=== PATIENT | female | born 1950 | race American Indian/Alaskan Native ===

== ENCOUNTER 2017-06-12 01:06 | Emergency (ER) | payer MEDICARE ==
[2017-06-12 01:55] LABS: Basophils # (Auto) 0.1 K/mm3 (0.0-0.1); Basophils % (Auto) 0.9 % (0.0-1.8); Eosinophils % (Auto) 0.1 % (0.0-4.3); Hematocrit 34.2 % (30.3-42.9); Hemoglobin 11.8 gm/dl (10.1-14.3); Lymphocytes # (Auto) 1.3 K/mm3 (1.2-5.4); Lymphocytes % (Auto) 13.4 % (13.4-35.0); Mean Corpuscular HGB Conc 35 % (30-34); Mean Corpuscular Hemoglobin 31 pg (28-32); Mean Corpuscular Volume 91 fl (79-97); Monocytes # (Auto) 0.6 K/mm3 (0.0-0.8); Monocytes % (Auto) 6.4 % (0.0-7.3); Platelet Count 312 K/mm3 (140-440); Red Blood Count 3.77 M/mm3 (3.65-5.03); Red Cell Distribution Width 14.9 % (13.2-15.2)
[2017-06-12] MEDS ORDERED: ZOFRAN ODT PO ONE (01:56)
--- NOTE | 2017-06-12 01:58 | Emergency Department Report ---
ED N/V/D HPI - General Chief complaint: Nausea/Vomiting/Diarrhea Stated complaint: ABDOMINAL PAIN Time Seen by Provider: 06/12/17 01:36 Source: EMS Mode of arrival: Stretcher Limitations: Altered Mental Status - History of Present Illness Initial comments: 56 year old female with a history of dementia and previous brain bleed presents to Hospital complains of 2 episodes of vomiting this evening. Symptoms started after eating chicken. Patient states to triage her stomach hurts but denies pain during my evaluation. She denies hematochezia, dysuria, diarrhea, fever, or previous abdominal surgery. - Related Data Previous Rx's Medication Instructions Recorded Last Taken Type Ondansetron [Zofran Odt] 4 mg PO Q8HR PRN #20 tab.rapdis 06/12/17 Unknown Rx Allergies Allergy/AdvReac Type Severity Reaction Status Date / Time No Known Allergies Allergy Verified 06/12/17 03:06 ED Review of Systems ROS: Stated complaint: ABDOMINAL PAIN Other details as noted in HPI Comment: All other systems reviewed and negative ED Past Medical Hx - Past Medical History Hx Dementia: Yes Additional medical history: brain bleed - Surgical History Past Surgical History?: No - Social History Smoking Status: Never Smoker Substance Use Type: None - Medications Home Medications: Home Medications Medication Instructions Recorded Confirmed Last Taken Type Ondansetron [Zofran Odt] 4 mg PO Q8HR PRN #20 tab.rapdis 06/12/17 Unknown Rx ED Physical Exam - General Limitations: Altered Mental Status - Other Other exam information: General: No limitations, patient is alert in no acute distress Head exam: Atraumatic, normocephalic Eyes exam: Normal appearance, pupils equal reactive to light, extraocular movements intact ENT: Moist mucous membrane, normal oropharynx Neck exam: Normal inspection, full range of motion, no meningismus nontender Respiratory exam: Clear to auscultation bilateral, no wheezes, rales, crackles Cardiovascular: Normal rate and rhythm, normal heart sounds Abdomen: Soft, nondistended, and nontender, with normal bowel sounds, no rebound, or guarding Extremity: Full range of motion normal inspection no deformity Back: Normal Inspection, full range of motion, no tenderness Neurologic: Alert, cranial nerves intact, no motor or sensory deficit Psychiatric: normal affect, normal mood Skin: Warm, dry, intact ED Course Vital Signs 04/29/18 01:23 Temperature 97.5 F L Pulse Rate 79 Respiratory 16 Rate Blood Pressure 152/75 O2 Sat by Pulse 100 Oximetry ED Medical Decision Making - Lab Data Result diagrams: 06/12/17 01:40 06/12/17 01:40 Lab Results 06/12/17 06/12/17 06/12/17 Range/Units 01:40 01:40 01:40 WBC 9.5 (4.5-11.0) K/mm3 RBC 3.77 (3.65-5.03) M/mm3 Hgb 11.8 (10.1-14.3) gm/dl Hct 34.2 (30.3-42.9) % MCV 91 (79-97) fl MCH 31 (28-32) pg MCHC 35 H (30-34) % RDW 14.9 (13.2-15.2) % Plt Count 312 (140-440) K/mm3 Lymph % (Auto) 13.4 (13.4-35.0) % Branch % (Auto) 6.4 (0.0-7.3) % Eos % (Auto) 0.1 (0.0-4.3) % Baso % (Auto) 0.9 (0.0-1.8) % Lymph # 1.3 (1.2-5.4) K/mm3 Branch # 0.6 (0.0-0.8) K/mm3 Eos # 0.0 (0.0-0.4) K/mm3 Baso # 0.1 (0.0-0.1) K/mm3 Seg Neutrophils % 79.2 H (40.0-70.0) % Seg Neutrophils # 7.5 (1.8-7.7) K/mm3 Sodium 142 (137-145) mmol/L Potassium 3.4 L (3.6-5.0) mmol/L Chloride 101.2 (98-107) mmol/L Carbon Dioxide 27 (22-30) mmol/L Anion Gap 17 mmol/L BUN 7 (7-17) mg/dL Creatinine 0.5 L (0.7-1.2) mg/dL Estimated GFR > 60 ml/min BUN/Creatinine Ratio 14 % Glucose 107 H (65-100) mg/dL Calcium 9.3 (8.4-10.2) mg/dL Total Bilirubin 0.40 (0.1-1.2) mg/dL AST 12 (5-40) units/L ALT 7 (7-56) units/L Alkaline Phosphatase 66 (35-129) units/L Total Protein 6.4 (6.3-8.2) g/dL Albumin 3.3 L (3.9-5) g/dL Albumin/Globulin Ratio 1.1 % Lipase 30 (13-60) units/L Urine Color (Yellow) Urine Turbidity (Clear) Urine pH (5.0-7.0) Ur Specific [place] (1.003-1.030) Urine Protein (Negative) mg/dL Urine Glucose (UA) (Negative) mg/dL Urine Ketones (Negative) mg/dL Urine Blood (Negative) Urine Nitrite (Negative) Urine Bilirubin (Negative) Urine Urobilinogen (<2.0) mg/dL Ur Leukocyte Esterase (Negative) Urine WBC (Auto) (0.0-6.0) /HPF Urine RBC (Auto) (0.0-6.0) /HPF U Epithel Cells (Auto) (0-13.0) /HPF Urine Mucus /HPF 04// Range/Units 04:03 WBC (4.5-11.0) K/mm3 RBC (3.65-5.03) M/mm3 Hgb (10.1-14.3) gm/dl Hct (30.3-42.9) % MCV (79-97) fl MCH (28-32) pg MCHC (30-34) % RDW (13.2-15.2) % Plt Count (140-440) K/mm3 Lymph % (Auto) (13.4-35.0) % Branch % (Auto) (0.0-7.3) % Eos % (Auto) (0.0-4.3) % Baso % (Auto) (0.0-1.8) % Lymph # (1.2-5.4) K/mm3 Branch # (0.0-0.8) K/mm3 Eos # (0.0-0.4) K/mm3 Baso # (0.0-0.1) K/mm3 Seg Neutrophils % (40.0-70.0) % Seg Neutrophils # (1.8-7.7) K/mm3 Sodium (137-145) mmol/L Potassium (3.6-5.0) mmol/L Chloride (98-107) mmol/L Carbon Dioxide (22-30) mmol/L Anion Gap mmol/L BUN (7-17) mg/dL Creatinine (0.7-1.2) mg/dL Estimated GFR ml/min BUN/Creatinine Ratio % Glucose (65-100) mg/dL Calcium (8.4-10.2) mg/dL Total Bilirubin (0.1-1.2) mg/dL AST (5-40) units/L ALT (7-56) units/L Alkaline Phosphatase (35-129) units/L Total Protein (6.3-8.2) g/dL Albumin (3.9-5) g/dL Albumin/Globulin Ratio % Lipase (13-60) units/L Urine Color Yellow (Yellow) Urine Turbidity Clear (Clear) Urine pH 7.0 (5.0-7.0) Ur Specific [place] 1.014 (1.003-1.030) Urine Protein <15 mg/dl (Negative) mg/dL Urine Glucose (UA) Neg (Negative) mg/dL Urine Ketones Neg (Negative) mg/dL Urine Blood Neg (Negative) Urine Nitrite Neg (Negative) Urine Bilirubin Neg (Negative) Urine Urobilinogen 2.0 (<2.0) mg/dL Ur Leukocyte Esterase Sm (Negative) Urine WBC (Auto) 6.0 (0.0-6.0) /HPF Urine RBC (Auto) 2.0 (0.0-6.0) /HPF U Epithel Cells (Auto) < 1.0 (0-13.0) /HPF Urine Mucus Few /HPF - Medical Decision Making By mouth Zofran given No pain reported Tolerating by mouth intake without further vomiting Asymptomatic in the ED Received by mouth potassium for mild hypokalemia Labs and urine unremarkable. Will be discharged - Differential Diagnosis gastritis, pancreatitis, food poisoning Critical Care Time: No Critical care attestation.: If time is entered above; I have spent that time in minutes in the direct care of this critically ill patient, excluding procedure time. ED Disposition Clinical Impression: Vomiting, Hypokalemia, Dementia Disposition: DC-01 TO HOME OR SELFCARE Is pt being admited?: No Does the pt Need Aspirin: No Condition: Stable Instructions: Acute Nausea and Vomiting (ED) Additional Instructions: Take the medication as prescribed. Follow-up with your doctor. Return if symptoms worsen as indicated by your discharge instructions Prescriptions: Ondansetron [Zofran Odt] 4 mg PO Q8HR PRN #20 tab.rapdis PRN Reason: Nausea And Vomiting Referrals: your, pmd [Other] - 2-3 Days Time of Disposition: 05:22
[2017-06-12 02:23] LABS: Alanine Aminotransferase 7 units/L (7-56); Albumin 3.3 g/dL (3.9-5); BUN/Creatinine Ratio 14; Blood Urea Nitrogen 7 mg/dL (7-17); Calcium 9.3 mg/dL (8.4-10.2); Hemolysis Index 27
[2017-06-12] MEDS ORDERED: POTASSIUM CHLORIDE PO ONE (03:00)
[2017-06-12 04:25] LABS: Bilirubin,Urine NEG (Negative); Blood,Urine NEG (Negative); Color,Urine Yellow (Yellow); Mucus,Urine FEW /HPF; Protein,Urine <15 mg/dL mg/dL (Negative)
[2017-06-12 07:09] VITALS: BP 154/74
== END 2017-06-12 07:15 | disposition home or self-care (01) ==
LOC: ED 01:06
DX: E87.6 Hypokalemia (principal); R11.10 Vomiting, unspecified; F03.90 Unspecified dementia, unspecified severity, without behavioral disturbance, psychotic disturbance, mood disturbance, and anxiety
CPT/HCPCS: 36415; 80053; 81001; 83690; 85025; 99284; Q0162

== ENCOUNTER 2017-06-21 12:13 | Emergency (ER) | payer MEDICARE ==
[2017-06-21] MEDS ORDERED: MORPHINE IV ONE (13:24)
[2017-06-21] MEDS ORDERED: BENADRYL IV ONE ×2 (13:24→14:44)
[2017-06-21] MEDS ORDERED: ZOFRAN IV ONE (13:24)
[2017-06-21] MEDS ORDERED: NACL 0.9% 1000 ML 1,000 ML IV ONE ×6 (13:26→20:11)
--- NOTE | 2017-06-21 13:32 | Emergency Department Report ---
ED Abdominal Pain HPI - General Chief Complaint: Abdominal Pain Stated Complaint: ABDOMINAL PAIN Time Seen by Provider: 06/21/17 13:10 Source: EMS, RN notes reviewed, old records reviewed Mode of arrival: Stretcher Limitations: Altered Mental Status - History of Present Illness Initial Comments: 56-year-old female with a past medical history of vascular dementia, alcohol abuse disorder, seizure disorder, hyposmolality and hyponatremia, encephalopathy , and previous traumatic subdural presents to the hospital from the detention with ulceration mental status and abdominal pain. Patient has a history of dementia but is more altered than baseline. She is currently agitated, restless, and unable to provide history of present illness. Previous medical records were reviewed and patient was seen by me in the ER June 12 for 2 episodes of vomiting. At that time patient had a normal white count, creatinine 0.5, normal UA, and was tolerating by mouth and had a nontender abdominal exam. Patient was also more alert at this time although confused due to baseline dementia. As per detention records patient had lab work on the that showed a white count of 18.7, creatinine of 5.6, BUN of 51, sodium 129, chloride is 72, CO2 of 28 and normal LFTs. Patient also had a single view abdominal x-ray which showed bowel gas pattern that was nonobstructive. Patient unable to provide any history of present illness. On June 20 patient was started on Flagyl as well as Rocephin for presumed diverticulitis. Patient is also started on Zofran for nausea and vomiting. - Related Data Previous Rx's Medication Instructions Recorded Last Taken Type Ondansetron [Zofran Odt] 4 mg PO Q8HR PRN #20 tab.rapdis 06/12/17 Unknown Rx Allergies Allergy/AdvReac Type Severity Reaction Status Date / Time No Known Allergies Allergy Verified 06/12/17 03:06 ED Review of Systems ROS: Stated complaint: ABDOMINAL PAIN Other details as noted in HPI Comment: Unobtainable due to pts medical conditions ED Past Medical Hx - Past Medical History Previous Medical History?: Yes Hx Seizures: Yes Hx Dementia: Yes (vascular dementia) Additional medical history: Traumatic subdural. History of alcohol abuse. Hyponatremia and hyposmoality - Social History Smoking Status: Unknown if ever smoked - Medications Home Medications: Home Medications Medication Instructions Recorded Confirmed Last Taken Type Ondansetron [Zofran Odt] 4 mg PO Q8HR PRN #20 tab.rapdis 06/12/17 Unknown Rx ED Physical Exam - General Limitations: Altered Mental Status - Other Other exam information: General: Patient is alert, restless, confused Head exam: Atraumatic, normocephalic Eyes exam: Normal appearance, pupils equal reactive to light ENT: Moist mucous membrane, normal oropharynx Neck exam: Normal inspection, full range of motion Respiratory exam: Clear to auscultation bilateral, no wheezes, rales, crackles Cardiovascular: Regular rate and rhythm Abdomen: Soft, generalized tenderness, no abd scars, no rebound or guarding Extremity: Full range of motion normal inspection no deformity Back: Normal Inspection, full range of motion, no tenderness Neurologic: Confused, unable to have a conversation, no facial droop, and cooperative has what sounds, 5/5 upper and lower extremity strength with sensation grossly intact Skin: Warm, dry, intact ED Course Vital Signs 06/21/17 06/21/17 06/21/17 13:39 13:45 14:01 Temperature Pulse Rate 78 83 Pulse Rate [ Anterior Bilateral Throughout] Respiratory 16 24 Rate Respiratory Rate [Anterior Bilateral Throughout] Blood Pressure 133/109 133/109 133/109 Blood Pressure [Right] O2 Sat by Pulse Oximetry 06/21/17 06/21/17 06/21/17 14:13 14:15 14:31 Temperature 98.3 F Pulse Rate 78 80 82 Pulse Rate [ Anterior Bilateral Throughout] Respiratory 24 22 21 Rate Respiratory Rate [Anterior Bilateral Throughout] Blood Pressure 133/109 133/109 Blood Pressure 133/109 [Right] O2 Sat by Pulse 100 Oximetry 06/21/17 06/21/17 06/21/17 14:45 14:48 15:00 Temperature Pulse Rate 75 69 Pulse Rate [ Anterior Bilateral Throughout] Respiratory 10 L 18 11 L Rate Respiratory Rate [Anterior Bilateral Throughout] Blood Pressure 133/109 111/59 Blood Pressure [Right] O2 Sat by Pulse Oximetry 06/21/17 06/21/17 06/21/17 15:14 15:15 15:18 Temperature Pulse Rate 67 Pulse Rate [ 69 Anterior Bilateral Throughout] Respiratory 13 24 Rate Respiratory 18 Rate [Anterior Bilateral Throughout] Blood Pressure 111/59 Blood Pressure [Right] O2 Sat by Pulse Oximetry 06/21/17 06/21/17 06/21/17 15:31 15:45 16:00 Temperature Pulse Rate 80 75 70 Pulse Rate [ Anterior Bilateral Throughout] Respiratory 16 13 12 Rate Respiratory Rate [Anterior Bilateral Throughout] Blood Pressure 120/58 120/58 106/61 Blood Pressure [Right] O2 Sat by Pulse 100 Oximetry 06/21/17 06/21/17 06/21/17 16:15 16:28 16:30 Temperature Pulse Rate 69 70 Pulse Rate [ 69 Anterior Bilateral Throughout] Respiratory 13 14 Rate Respiratory 20 Rate [Anterior Bilateral Throughout] Blood Pressure 109/58 117/61 Blood Pressure [Right] O2 Sat by Pulse 100 100 Oximetry 06/21/17 06/21/17 06/21/17 16:46 17:01 17:31 Temperature 94.9 F L Pulse Rate 68 70 70 Pulse Rate [ Anterior Bilateral Throughout] Respiratory 11 L 11 L 12 Rate Respiratory Rate [Anterior Bilateral Throughout] Blood Pressure 119/55 111/53 Blood Pressure 119/57 [Right] O2 Sat by Pulse 100 Oximetry 06/21/17 06/21/17 06/21/17 18:07 18:15 18:30 Temperature Pulse Rate 71 69 71 Pulse Rate [ Anterior Bilateral Throughout] Respiratory 11 L 11 L 11 L Rate Respiratory Rate [Anterior Bilateral Throughout] Blood Pressure 97/54 98/53 Blood Pressure [Right] O2 Sat by Pulse 100 100 100 Oximetry 06/21/17 06/21/17 06/21/17 18:45 18:52 19:00 Temperature 95.1 F L Pulse Rate 85 82 82 Pulse Rate [ Anterior Bilateral Throughout] Respiratory 20 20 20 Rate Respiratory Rate [Anterior Bilateral Throughout] Blood Pressure 91/51 86/47 Blood Pressure 83/51 [Right] O2 Sat by Pulse 100 Oximetry 06/21/17 06/21/17 06/21/17 19:10 19:15 19:30 Temperature Pulse Rate 84 79 79 Pulse Rate [ Anterior Bilateral Throughout] Respiratory 20 20 Rate Respiratory Rate [Anterior Bilateral Throughout] Blood Pressure 86/47 107/61 86/47 Blood Pressure [Right] O2 Sat by Pulse 100 100 100 Oximetry 06/21/17 06/21/17 19:45 20:00 Temperature Pulse Rate 81 85 Pulse Rate [ Anterior Bilateral Throughout] Respiratory 20 15 Rate Respiratory Rate [Anterior Bilateral Throughout] Blood Pressure 92/56 82/61 Blood Pressure [Right] O2 Sat by Pulse 100 Oximetry - Reevaluation(s) Reevaluation #1: 06/21/17 20:22 see medical decision making for patient's course of treatment and plan I contacted family member Marii Molina patient's sister at [phone] and informed her of patient's critical condition, diagnosis and treatment in the ED , need for transfer, and destination for transfer at [facility] - Consultations Consultation #1: 06/21/17 15:35 case d/w Dr Sherman, nephro, will consult Consultation #2: 06/21/170 case d/w Dr Rolon Neurosurgeon at [place], accepted pt pending surg acceptance Dr Lucho valente surgeon accepted for ER transfer - Central Line Placement Left IJ Consent Obtained: emergent situation Time Out Performed: Yes Patient Placed on Monitor/Pulse Ox: Yes MD Prep: mask, gown, gloves Central Line Prep: Chlorhexidine scrub Local Anesthesia Used: Lidocaine 1% Amount of Anesthesia Used (mls): 5 Ultrasound Used for Placement: Yes Central Line Lumen Inserted: triple Bloods Obtained for Lab: Yes Central Line Position: good blood return, sutured in place with nyl Dressing Applied: Tegaderm Post Procedure X-Ray: tip of catheter in good p Patient Tolerated Procedure: well Complications: none, arterial puncture/cannula (puncture, no cannulation ) - Intubation Time Out Performed: Yes Sedative: Etomidate Mg Given: 20 Paralytic: Vecuronium Mg Given: 90 Laryngoscope: Violet Size: 3 ET Tube Size: 7.5 Tube Secured Depth (cm): 20 Tube Secured Location: lips Tube Placement Confirmation: visualized tube passing t, equal breath sounds bilat, no breath sounds over epi, confirmation by capnometr Patient Tolerated Procedure: well Intubation Complications: none ED Medical Decision Making - Lab Data Result diagrams: 06/21/17 13:41 06/21/17 18:22 Lab Results 06/21/17 06/21/17 06/21/17 Range/Units 12:20 13:41 13:41 WBC 16.1 H (4.5-11.0) K/mm3 RBC 4.55 (3.65-5.03) M/mm3 Hgb 13.8 (10.1-14.3) gm/dl Hct 39.2 (30.3-42.9) % MCV 86 (79-97) fl MCH 30 (28-32) pg MCHC 35 H (30-34) % RDW 14.9 (13.2-15.2) % Plt Count 343 (140-440) K/mm3 Lymph % (Auto) 4.8 L (13.4-35.0) % [place] % (Auto) 5.0 (0.0-7.3) % Eos % (Auto) 0.0 (0.0-4.3) % Baso % (Auto) 0.3 (0.0-1.8) % Lymph # 0.8 L (1.2-5.4) K/mm3 Stephenson # 0.8 (0.0-0.8) K/mm3 Eos # 0.0 (0.0-0.4) K/mm3 Baso # 0.0 (0.0-0.1) K/mm3 Seg Neutrophils % 89.9 H (40.0-70.0) % Seg Neutrophils # 14.4 H (1.8-7.7) K/mm3 PT (12.2-14.9) Sec. INR (0.87-1.13) APTT (24.2-36.6) Sec. POC ABG pH (7.35-7.45) POC ABG pCO2 (35-45) POC ABG pO2 (80-105) POC ABG HCO3 POC ABG Total CO2 POC ABG O2 Sat POC ABG Base Excess VBG pH (7.320-7.420) FiO2 % Sodium 121 L (137-145) mmol/L Potassium 6.1 H* (3.6-5.0) mmol/L Chloride 65.9 L (98-107) mmol/L Carbon Dioxide 20 L (22-30) mmol/L Anion Gap 41 mmol/L BUN 132 H (7-17) mg/dL Creatinine 8.8 H (0.7-1.2) mg/dL Estimated GFR 5 ml/min BUN/Creatinine Ratio 15 % Glucose 77 (65-100) mg/dL POC Glucose 72 (70-105) Lactic Acid (0.7-2.0) mmol/L Calcium 8.2 L (8.4-10.2) mg/dL Magnesium (1.7-2.3) mg/dL Total Bilirubin 0.70 (0.1-1.2) mg/dL AST 18 (5-40) units/L ALT 7 (7-56) units/L Alkaline Phosphatase 125 (35-129) units/L Total Protein 7.9 (6.3-8.2) g/dL Albumin 3.5 L (3.9-5) g/dL Albumin/Globulin Ratio 0.8 % Lipase 57 (13-60) units/L TSH (0.270-4.200) mlU/mL Urine Color (Yellow) Urine Turbidity (Clear) Urine pH (5.0-7.0) Ur Specific [place] (1.003-1.030) Urine Protein (Negative) mg/dL Urine Glucose (UA) (Negative) mg/dL Urine Ketones (Negative) mg/dL Urine Blood (Negative) Urine Nitrite (Negative) Urine Bilirubin (Negative) Urine Urobilinogen (<2.0) mg/dL Ur Leukocyte Esterase (Negative) Urine WBC (Auto) (0.0-6.0) /HPF Urine RBC (Auto) (0.0-6.0) /HPF U Epithel Cells (Auto) (0-13.0) /HPF Urine Bacteria (Auto) (Negative) /HPF Ur Transition Epith Cell /HPF Urine Mucus /HPF Urine Opiates Screen Urine Methadone Screen Ur Barbiturates Screen Ur Phencyclidine Scrn Ur Amphetamines Screen U Benzodiazepines Scrn Urine Cocaine Screen U Marijuana (THC) Screen Drugs of Abuse Note Plasma/Serum Alcohol (0-0.07) % Blood Type Antibody Screen 06/21/17 06/21/17 06/21/17 Range/Units 13:41 13:41 13:41 WBC (4.5-11.0) K/mm3 RBC (3.65-5.03) M/mm3 Hgb (10.1-14.3) gm/dl Hct (30.3-42.9) % MCV (79-97) fl MCH (28-32) pg MCHC (30-34) % RDW (13.2-15.2) % Plt Count (140-440) K/mm3 Lymph % (Auto) (13.4-35.0) % Stephenson % (Auto) (0.0-7.3) % Eos % (Auto) (0.0-4.3) % Baso % (Auto) (0.0-1.8) % Lymph # (1.2-5.4) K/mm3 Stephenson # (0.0-0.8) K/mm3 Eos # (0.0-0.4) K/mm3 Baso # (0.0-0.1) K/mm3 Seg Neutrophils % (40.0-70.0) % Seg Neutrophils # (1.8-7.7) K/mm3 PT (12.2-14.9) Sec. INR (0.87-1.13) APTT (24.2-36.6) Sec. POC ABG pH (7.35-7.45) POC ABG pCO2 (35-45) POC ABG pO2 (80-105) POC ABG HCO3 POC ABG Total CO2 POC ABG O2 Sat POC ABG Base Excess VBG pH (7.320-7.420) FiO2 % Sodium (137-145) mmol/L Potassium (3.6-5.0) mmol/L Chloride (98-107) mmol/L Carbon Dioxide (22-30) mmol/L Anion Gap mmol/L BUN (7-17) mg/dL Creatinine (0.7-1.2) mg/dL Estimated GFR ml/min BUN/Creatinine Ratio % Glucose (65-100) mg/dL POC Glucose (70-105) Lactic Acid 2.10 H* (0.7-2.0) mmol/L Calcium (8.4-10.2) mg/dL Magnesium (1.7-2.3) mg/dL Total Bilirubin (0.1-1.2) mg/dL AST (5-40) units/L ALT (7-56) units/L Alkaline Phosphatase (35-129) units/L Total Protein (6.3-8.2) g/dL Albumin (3.9-5) g/dL Albumin/Globulin Ratio % Lipase (13-60) units/L TSH 1.150 (0.270-4.200) mlU/mL Urine Color (Yellow) Urine Turbidity (Clear) Urine pH (5.0-7.0) Ur Specific [place] (1.003-1.030) Urine Protein (Negative) mg/dL Urine Glucose (UA) (Negative) mg/dL Urine Ketones (Negative) mg/dL Urine Blood (Negative) Urine Nitrite (Negative) Urine Bilirubin (Negative) Urine Urobilinogen (<2.0) mg/dL Ur Leukocyte Esterase (Negative) Urine WBC (Auto) (0.0-6.0) /HPF Urine RBC (Auto) (0.0-6.0) /HPF U Epithel Cells (Auto) (0-13.0) /HPF Urine Bacteria (Auto) (Negative) /HPF Ur Transition Epith Cell /HPF Urine Mucus /HPF Urine Opiates Screen Urine Methadone Screen Ur Barbiturates Screen Ur Phencyclidine Scrn Ur Amphetamines Screen U Benzodiazepines Scrn Urine Cocaine Screen U Marijuana (THC) Screen Drugs of Abuse Note Plasma/Serum Alcohol < 0.01 (0-0.07) % Blood Type Antibody Screen 06/21/17 06/21/17 06/21/17 Range/Units 13:41 13:41 13:54 WBC (4.5-11.0) K/mm3 RBC (3.65-5.03) M/mm3 Hgb (10.1-14.3) gm/dl Hct (30.3-42.9) % MCV (79-97) fl MCH (28-32) pg MCHC (30-34) % RDW (13.2-15.2) % Plt Count (140-440) K/mm3 Lymph % (Auto) (13.4-35.0) % Stephenson % (Auto) (0.0-7.3) % Eos % (Auto) (0.0-4.3) % Baso % (Auto) (0.0-1.8) % Lymph # (1.2-5.4) K/mm3 Stephenson # (0.0-0.8) K/mm3 Eos # (0.0-0.4) K/mm3 Baso # (0.0-0.1) K/mm3 Seg Neutrophils % (40.0-70.0) % Seg Neutrophils # (1.8-7.7) K/mm3 PT (12.2-14.9) Sec. INR (0.87-1.13) APTT (24.2-36.6) Sec. POC ABG pH (7.35-7.45) POC ABG pCO2 (35-45) POC ABG pO2 (80-105) POC ABG HCO3 POC ABG Total CO2 POC ABG O2 Sat POC ABG Base Excess VBG pH 7.562 H (7.320-7.420) FiO2 % Sodium (137-145) mmol/L Potassium (3.6-5.0) mmol/L Chloride (98-107) mmol/L Carbon Dioxide (22-30) mmol/L Anion Gap mmol/L BUN (7-17) mg/dL Creatinine (0.7-1.2) mg/dL Estimated GFR ml/min BUN/Creatinine Ratio % Glucose (65-100) mg/dL POC Glucose 95 (70-105) Lactic Acid (0.7-2.0) mmol/L Calcium (8.4-10.2) mg/dL Magnesium 4.00 H (1.7-2.3) mg/dL Total Bilirubin (0.1-1.2) mg/dL AST (5-40) units/L ALT (7-56) units/L Alkaline Phosphatase (35-129) units/L Total Protein (6.3-8.2) g/dL Albumin (3.9-5) g/dL Albumin/Globulin Ratio % Lipase (13-60) units/L TSH (0.270-4.200) mlU/mL Urine Color (Yellow) Urine Turbidity (Clear) Urine pH (5.0-7.0) Ur Specific [place] (1.003-1.030) Urine Protein (Negative) mg/dL Urine Glucose (UA) (Negative) mg/dL Urine Ketones (Negative) mg/dL Urine Blood (Negative) Urine Nitrite (Negative) Urine Bilirubin (Negative) Urine Urobilinogen (<2.0) mg/dL Ur Leukocyte Esterase (Negative) Urine WBC (Auto) (0.0-6.0) /HPF Urine RBC (Auto) (0.0-6.0) /HPF U Epithel Cells (Auto) (0-13.0) /HPF Urine Bacteria (Auto) (Negative) /HPF Ur Transition Epith Cell /HPF Urine Mucus /HPF Urine Opiates Screen Urine Methadone Screen Ur Barbiturates Screen Ur Phencyclidine Scrn Ur Amphetamines Screen U Benzodiazepines Scrn Urine Cocaine Screen U Marijuana (THC) Screen Drugs of Abuse Note Plasma/Serum Alcohol (0-0.07) % Blood Type Antibody Screen 06/21/17 06/21/17 06/21/17 Range/Units 14:10 14:10 14:44 WBC (4.5-11.0) K/mm3 RBC (3.65-5.03) M/mm3 Hgb (10.1-14.3) gm/dl Hct (30.3-42.9) % MCV (79-97) fl MCH (28-32) pg MCHC (30-34) % RDW (13.2-15.2) % Plt Count (140-440) K/mm3 Lymph % (Auto) (13.4-35.0) % Stephenson % (Auto) (0.0-7.3) % Eos % (Auto) (0.0-4.3) % Baso % (Auto) (0.0-1.8) % Lymph # (1.2-5.4) K/mm3 Stephenson # (0.0-0.8) K/mm3 Eos # (0.0-0.4) K/mm3 Baso # (0.0-0.1) K/mm3 Seg Neutrophils % (40.0-70.0) % Seg Neutrophils # (1.8-7.7) K/mm3 PT (12.2-14.9) Sec. INR (0.87-1.13) APTT (24.2-36.6) Sec. POC ABG pH (7.35-7.45) POC ABG pCO2 (35-45) POC ABG pO2 (80-105) POC ABG HCO3 POC ABG Total CO2 POC ABG O2 Sat POC ABG Base Excess VBG pH (7.320-7.420) FiO2 % Sodium (137-145) mmol/L Potassium (3.6-5.0) mmol/L Chloride (98-107) mmol/L Carbon Dioxide (22-30) mmol/L Anion Gap mmol/L BUN (7-17) mg/dL Creatinine (0.7-1.2) mg/dL Estimated GFR ml/min BUN/Creatinine Ratio % Glucose (65-100) mg/dL POC Glucose (70-105) Lactic Acid 2.60 H* (0.7-2.0) mmol/L Calcium (8.4-10.2) mg/dL Magnesium (1.7-2.3) mg/dL Total Bilirubin (0.1-1.2) mg/dL AST (5-40) units/L ALT (7-56) units/L Alkaline Phosphatase (35-129) units/L Total Protein (6.3-8.2) g/dL Albumin (3.9-5) g/dL Albumin/Globulin Ratio % Lipase (13-60) units/L TSH (0.270-4.200) mlU/mL Urine Color [place] (Yellow) Urine Turbidity Cloudy (Clear) Urine pH 5.0 (5.0-7.0) Ur Specific [place] 1.017 (1.003-1.030) Urine Protein 30 mg/dl (Negative) mg/dL Urine Glucose (UA) Neg (Negative) mg/dL Urine Ketones Neg (Negative) mg/dL Urine Blood Sm (Negative) Urine Nitrite Neg (Negative) Urine Bilirubin Neg (Negative) Urine Urobilinogen < 2.0 (<2.0) mg/dL Ur Leukocyte Esterase Lg (Negative) Urine WBC (Auto) 115.0 H (0.0-6.0) /HPF Urine RBC (Auto) 11.0 (0.0-6.0) /HPF U Epithel Cells (Auto) 3.0 (0-13.0) /HPF Urine Bacteria (Auto) 1+ (Negative) /HPF Ur Transition Epith Cell 1 /HPF Urine Mucus Few /HPF Urine Opiates Screen Presumptive negative Urine Methadone Screen Presumptive negative Ur Barbiturates Screen Presumptive negative Ur Phencyclidine Scrn Presumptive negative Ur Amphetamines Screen Presumptive negative U Benzodiazepines Scrn Presumptive negative Urine Cocaine Screen Presumptive negative U Marijuana (THC) Screen Presumptive negative Drugs of Abuse Note Disclamer Plasma/Serum Alcohol (0-0.07) % Blood Type Antibody Screen 06/21/17 06/21/17 06/21/17 Range/Units 15:01 15:53 17:45 WBC (4.5-11.0) K/mm3 RBC (3.65-5.03) M/mm3 Hgb (10.1-14.3) gm/dl Hct (30.3-42.9) % MCV (79-97) fl MCH (28-32) pg MCHC (30-34) % RDW (13.2-15.2) % Plt Count (140-440) K/mm3 Lymph % (Auto) (13.4-35.0) % Stephenson % (Auto) (0.0-7.3) % Eos % (Auto) (0.0-4.3) % Baso % (Auto) (0.0-1.8) % Lymph # (1.2-5.4) K/mm3 Stephenson # (0.0-0.8) K/mm3 Eos # (0.0-0.4) K/mm3 Baso # (0.0-0.1) K/mm3 Seg Neutrophils % (40.0-70.0) % Seg Neutrophils # (1.8-7.7) K/mm3 PT (12.2-14.9) Sec. INR (0.87-1.13) APTT (24.2-36.6) Sec. POC ABG pH 7.528 H (7.35-7.45) POC ABG pCO2 33.4 L (35-45) POC ABG pO2 98 (80-105) POC ABG HCO3 27.8 POC ABG Total CO2 29 POC ABG O2 Sat 98 POC ABG Base Excess 5 VBG pH (7.320-7.420) FiO2 28 % Sodium (137-145) mmol/L Potassium (3.6-5.0) mmol/L Chloride (98-107) mmol/L Carbon Dioxide (22-30) mmol/L Anion Gap mmol/L BUN (7-17) mg/dL Creatinine (0.7-1.2) mg/dL Estimated GFR ml/min BUN/Creatinine Ratio % Glucose (65-100) mg/dL POC Glucose (70-105) Lactic Acid 1.40 (0.7-2.0) mmol/L Calcium (8.4-10.2) mg/dL Magnesium (1.7-2.3) mg/dL Total Bilirubin (0.1-1.2) mg/dL AST (5-40) units/L ALT (7-56) units/L Alkaline Phosphatase (35-129) units/L Total Protein (6.3-8.2) g/dL Albumin (3.9-5) g/dL Albumin/Globulin Ratio % Lipase (13-60) units/L TSH (0.270-4.200) mlU/mL Urine Color (Yellow) Urine Turbidity (Clear) Urine pH (5.0-7.0) Ur Specific [place] (1.003-1.030) Urine Protein (Negative) mg/dL Urine Glucose (UA) (Negative) mg/dL Urine Ketones (Negative) mg/dL Urine Blood (Negative) Urine Nitrite (Negative) Urine Bilirubin (Negative) Urine Urobilinogen (<2.0) mg/dL Ur Leukocyte Esterase (Negative) Urine WBC (Auto) (0.0-6.0) /HPF Urine RBC (Auto) (0.0-6.0) /HPF U Epithel Cells (Auto) (0-13.0) /HPF Urine Bacteria (Auto) (Negative) /HPF Ur Transition Epith Cell /HPF Urine Mucus /HPF Urine Opiates Screen Urine Methadone Screen Ur Barbiturates Screen Ur Phencyclidine Scrn Ur Amphetamines Screen U Benzodiazepines Scrn Urine Cocaine Screen U Marijuana (THC) Screen Drugs of Abuse Note Plasma/Serum Alcohol (0-0.07) % Blood Type O POSITIVE Antibody Screen Negative 06/21/17 06/21/17 Range/Units 18:22 18:30 WBC (4.5-11.0) K/mm3 RBC (3.65-5.03) M/mm3 Hgb (10.1-14.3) gm/dl Hct (30.3-42.9) % MCV (79-97) fl MCH (28-32) pg MCHC (30-34) % RDW (13.2-15.2) % Plt Count (140-440) K/mm3 Lymph % (Auto) (13.4-35.0) % [place] % (Auto) (0.0-7.3) % Eos % (Auto) (0.0-4.3) % Baso % (Auto) (0.0-1.8) % Lymph # (1.2-5.4) K/mm3 [place] # (0.0-0.8) K/mm3 Eos # (0.0-0.4) K/mm3 Baso # (0.0-0.1) K/mm3 Seg Neutrophils % (40.0-70.0) % Seg Neutrophils # (1.8-7.7) K/mm3 PT 12.8 (12.2-14.9) Sec. INR 0.92 (0.87-1.13) APTT 29.2 (24.2-36.6) Sec. POC ABG pH (7.35-7.45) POC ABG pCO2 (35-45) POC ABG pO2 (80-105) POC ABG HCO3 POC ABG Total CO2 POC ABG O2 Sat POC ABG Base Excess VBG pH (7.320-7.420) FiO2 % Sodium (137-145) mmol/L Potassium 4.5 D (3.6-5.0) mmol/L Chloride (98-107) mmol/L Carbon Dioxide (22-30) mmol/L Anion Gap mmol/L BUN (7-17) mg/dL Creatinine (0.7-1.2) mg/dL Estimated GFR ml/min BUN/Creatinine Ratio % Glucose (65-100) mg/dL POC Glucose (70-105) Lactic Acid (0.7-2.0) mmol/L Calcium (8.4-10.2) mg/dL Magnesium (1.7-2.3) mg/dL Total Bilirubin (0.1-1.2) mg/dL AST (5-40) units/L ALT (7-56) units/L Alkaline Phosphatase (35-129) units/L Total Protein (6.3-8.2) g/dL Albumin (3.9-5) g/dL Albumin/Globulin Ratio % Lipase (13-60) units/L TSH (0.270-4.200) mlU/mL Urine Color (Yellow) Urine Turbidity (Clear) Urine pH (5.0-7.0) Ur Specific [place] (1.003-1.030) Urine Protein (Negative) mg/dL Urine Glucose (UA) (Negative) mg/dL Urine Ketones (Negative) mg/dL Urine Blood (Negative) Urine Nitrite (Negative) Urine Bilirubin (Negative) Urine Urobilinogen (<2.0) mg/dL Ur Leukocyte Esterase (Negative) Urine WBC (Auto) (0.0-6.0) /HPF Urine RBC (Auto) (0.0-6.0) /HPF U Epithel Cells (Auto) (0-13.0) /HPF Urine Bacteria (Auto) (Negative) /HPF Ur Transition Epith Cell /HPF Urine Mucus /HPF Urine Opiates Screen Urine Methadone Screen Ur Barbiturates Screen Ur Phencyclidine Scrn Ur Amphetamines Screen U Benzodiazepines Scrn Urine Cocaine Screen U Marijuana (THC) Screen Drugs of Abuse Note Plasma/Serum Alcohol (0-0.07) % Blood Type Antibody Screen - EKG Data -: EKG Interpreted by Me EKG shows normal: sinus rhythm, axis (2), QRS complexes (111), ST-T waves (no stemi/t waves, no peak t waves, pvc's) Rate: normal (80) - EKG Data When compared to previous EKG there are: previous EKG unavailable - Radiology Data Radiology results: report reviewed, image reviewed (read by me: repeat cxr after central line, ngt, intubation show appropriate postions of tubes. no pneumonothorax, possible lll infiltrate) Chest x-ray IMPRESSION: Cardiomegaly. No acute pulmonary findings. ct head FINDINGS: There is a moderate size extra-axial fluid collection seen extending along the lateral aspect of the left frontal, left parietal lobe and minimally along the superior aspect of the left temporal lobe. This is predominantly low density suggesting a chronic subdural hematoma however there also small areas of intermediate to increased density scattered within the fluid collection suggesting subacute hemorrhage superimposed within a chronic subdural hematoma. Overall this extends anterior to posterior approximately 15.5 centimeters and measuring up to approximately 12 millimeters in depth. There is moderate mass effect effacing the adjacent sulci. There is mild midline shift left to right approximately 5.5 millimeters. Ventricles and sulcal pattern otherwise are mildly prominent as are the fissures consistent with mild atrophy. No parenchymal hemorrhage or masses are identified. There is no evidence of skull fracture. Two old yahaira holes are visualized in the left parietal bone. Visualized portions of the paranasal sinuses are clear. Mastoid air cells are clear. IMPRESSION: Moderate-sized chronic left subdural hematoma with superimposed acute or subacute hemorrhage laced with in the chronic subdural hematoma. Please see above measurements. There is mass effect as described with midline shift left to right approximately 5.5 millimeters. No parenchymal hemorrhage is visualized. There is evidence of mild atrophy. Two old yahaira holes are visualized in the left parietal bone. No fracture is seen. Critical value: These findings were discussed in detail with Dr. Ocampo on 06/21/2017 at 5:13 p[address] Eastern standard time. ct a/p: IMPRESSION: Findings consistent with small-bowel obstruction mid pelvis to the left anteriorly secondary to an anterior pelvic wall hernia. No ascites or free air is seen. Alveolar densities throughout the right lower lobe suspicious for pneumonia. Atelectasis could present this manner. Small amount of atelectasis also suspected in the right middle lobe.. Mild to moderate diverticulosis left side of the colon as described. There is minimal increased density in the adjacent mesentery which may be chronic. I cannot exclude minimal diverticulitis. There is no evidence of abscess or free intraperitoneal gas that would suggest perforation. There is evidence of diffuse pancreatic atrophy. Benign-appearing calcifications visualize right adrenal gland suggesting prior fungal infection or hemorrhage. Adrenal glands are otherwise unremarkable. Garcia catheter visualized in the urinary bladder. - Medical Decision Making Altered mental status Patient required IV Benadryl for sedation and remained asleep during remainder of ED stay after receiving the medication Acute on chronic subdural Positive shift Keppra given since patient has a baseline seizure disorder with acute on chronic bleed Neurosurgery not available at this facility Case discussed with neurosurgeon Dr. Rolon at [place] who has accepted patient for transfer pending surgical acceptance Bowel obstruction Recent history of abdominal pain and vomiting Morphine and zofran given CT shows complete bowel obstruction NG tube placed with immediate return of 1700 mL of feculent stomach contents Patient intubated for airway protection. Preintubation ABG shows normal oxygenation with no significant acid-base disturbance Flagyl added to antibiotics as diverticulitis cannot be ruled out Case discussed with general surgeon at [place] Dr. Lucho aldana accepted patient for transfer to ER Acute renal failure Likely caused by dehydration and vomiting Patient aggressively hydrated Garcia placed with continued urine output Associated hyperkalemia treated with calcium, insulin, glucose, sodium bicarb, and rectal Kayexalate Repeat potassium normal consult with Dr Sherman canceled since pt will be transferred UTI Patient is managed per sepsis protocol with 30 mL per KG bolus IV fluid Lactic acid trending downward with hydration and treatment Patient received Zosyn Hypothermia Developed during ED stay Active warming initiated Subsequent mild hypotension with rewarming with map greater than 65 IV fluids will be continued and significant dehydration Left internal jugular line placed for pressor support as needed Possible pneumonia versus an atalectasis as per CT abdomen and pelvis Zosyn given pt at be transferred to [place] ED - Differential Diagnosis sepsis, uti, diverticulitis, encephalopathy, ich, gastritis Critical Care Time: Yes Critical care time in (mins) excluding proc time.: 90 Critical care attestation.: If time is entered above; I have spent that time in minutes in the direct care of this critically ill patient, excluding procedure time. ED Disposition Clinical Impression: Acute on chronic intracranial subdural hematoma, Dementia, Altered mental status, SBO (small bowel obstruction), UTI (urinary tract infection), Sepsis, ARF (acute renal failure), Hyperkalemia Disposition: [id number] OP ADMIT IP TO THIS HOSP Is pt being admited?: Yes Condition: Stable Time of Disposition: 20:35 (DR Yepez/Gonzales Beasley)
[2017-06-21 14:07] LABS: Basophils % (Auto) 0.3 % (0.0-1.8); Hematocrit 39.2 % (30.3-42.9); Hemoglobin 13.8 gm/dl (10.1-14.3); Lymphocytes # (Auto) 0.8 K/mm3 (1.2-5.4); Lymphocytes % (Auto) 4.8 % (13.4-35.0); Mean Corpuscular HGB Conc 35 % (30-34); Mean Corpuscular Hemoglobin 30 pg (28-32); Mean Corpuscular Volume 86 fl (79-97); Monocytes # (Auto) 0.8 K/mm3 (0.0-0.8); Platelet Count 343 K/mm3 (140-440); Red Blood Count 4.55 M/mm3 (3.65-5.03); Red Cell Distribution Width 14.9 % (13.2-15.2)
[2017-06-21] MEDS ORDERED: ATIVAN IV ONE (14:21)
[2017-06-21 14:34] LABS: Albumin 3.5 g/dL (3.9-5); Calcium 8.2 mg/dL (8.4-10.2)
[2017-06-21 14:38] LABS: Bacteria,Urine 1+ /HPF (Negative); Bilirubin,Urine NEG (Negative); Blood,Urine SM (Negative); Color,Urine Amber (Yellow); Mucus,Urine FEW /HPF; Urobilinogen,Urine < 2.0 mg/dL (<2.0)
[2017-06-21 14:41] LABS: Amphetamine Screen,Urine PRESUMPTIVE NEGATIVE; Benzodiazepines Screen,Urine PRESUMPTIVE NEGATIVE; Cannabinoid Screen,Urine PRESUMPTIVE NEGATIVE; Cocaine Screen,Urine PRESUMPTIVE NEGATIVE; Methadone Screen,Urine PRESUMPTIVE NEGATIVE; Opiate Screen,Urine PRESUMPTIVE NEGATIVE
[2017-06-21] MEDS ORDERED: SODIUM BICARBONATE IV ONE ×2 (14:47→15:29)
[2017-06-21] MEDS ORDERED: KIONEX PR ONE (14:48)
[2017-06-21] MEDS ORDERED: PROVENTIL IH ONE (14:48)
[2017-06-21] MEDS ORDERED: NACL 0.9% 1000 ML IV ONE (14:49)
[2017-06-21] MEDS ORDERED: CALCIUM GLUCONATE 1,000 MG in NACL 0.9% 100 ML IV ONE (14:49)
[2017-06-21] MEDS ORDERED: D50W (25GM) Syringe IV ONE (14:50)
[2017-06-21] MEDS ORDERED: HumuLIN R IV ONE (14:50)
[2017-06-21] MEDS ORDERED: ZOSYN/NS 4.5GM/100ML 4.5 GM/100 ML VIAL IV SCH (15:00)
--- NOTE | 2017-06-21 16:39 | XRay Report ---
FINAL REPORT EXAM: XR CHEST 1V AP HISTORY: AMS TECHNIQUE: Frontal chest x-ray. PRIORS: None currently available. FINDINGS: Mild to moderate cardiomegaly. Aortic calcifications. There is no effusion. There is no pneumothorax. There is no consolidation. There are no suspicious osseous lesions. Scoliosis. IMPRESSION: Cardiomegaly. No acute pulmonary findings.
--- NOTE | 2017-06-21 17:20 | Cat Scan Report ---
FINAL REPORT PROCEDURE: CT HEAD/BRAIN WO CON TECHNIQUE: Computerized tomography of the head was performed without contrast material. HISTORY: dementia, ams COMPARISON: No prior studies are available for comparison. FINDINGS: There is a moderate size extra-axial fluid collection seen extending along the lateral aspect of the left frontal, left parietal lobe and minimally along the superior aspect of the left temporal lobe. This is predominantly low density suggesting a chronic subdural hematoma however there also small areas of intermediate to increased density scattered within the fluid collection suggesting subacute hemorrhage superimposed within a chronic subdural hematoma. Overall this extends anterior to posterior approximately 15.5 centimeters and measuring up to approximately 12 millimeters in depth. There is moderate mass effect effacing the adjacent sulci. There is mild midline shift left to right approximately 5.5 millimeters. Ventricles and sulcal pattern otherwise are mildly prominent as are the fissures consistent with mild atrophy. No parenchymal hemorrhage or masses are identified. There is no evidence of skull fracture. Two old yahaira holes are visualized in the left parietal bone. Visualized portions of the paranasal sinuses are clear. Mastoid air cells are clear. IMPRESSION: Moderate-sized chronic left subdural hematoma with superimposed acute or subacute hemorrhage laced with in the chronic subdural hematoma. Please see above measurements. There is mass effect as described with midline shift left to right approximately 5.5 millimeters. No parenchymal hemorrhage is visualized. There is evidence of mild atrophy. Two old yahaira holes are visualized in the left parietal bone. No fracture is seen. Critical value: These findings were discussed in detail with Dr. Ocampo on 06/21/2017 at 5:13 p.m. Eastern standard time.
--- NOTE | 2017-06-21 17:50 | Cat Scan Report ---
FINAL REPORT PROCEDURE: CT ABDOMEN PELVIS WO CON TECHNIQUE: Computerized axial tomography of the abdomen and pelvis was performed without intravenous contrast. This study is performed without intravascular contrast material and its sensitivity for abdominal and pelvic pathology, including neoplasms, inflammation, abscess, free fluid, thrombosis, arterial dissection and infarction, is reduced compared with a contrast enhanced study. HISTORY: abd pain, leukocytosis COMPARISON: No prior studies are available for comparison. FINDINGS: Lower Lung davsi: Diffuse patchy infiltrate appears to be present in the right lower lobe. Small amount of atelectasis or subsegmental infiltrate appears to be present in the right middle lobe inferiorly. There appears to be a band of atelectasis in the inferior aspect of the lingula. Upper Abdomen: Calcified granuloma seen in the right lobe of the liver anteriorly. The unenhanced images the liver otherwise are unremarkable. The gallbladder, the spleen and the left adrenal gland are unremarkable. There are multiple small calcifications seen in the right adrenal gland suggesting prior granulomatous disease, prior fungal infection or prior hemorrhage. The pancreas appears atrophied otherwise is unremarkable. The stomach is markedly distended with fluid otherwise is unremarkable. Small bowel loops also are fluid filled and mildly distended. There is a abrupt caliber change in the left mid pelvis anteriorly. There is anterior pelvic wall hernia containing some adipose tissue and a loop of small bowel. This appears to be causing small bowel obstruction. This is visualized on image 131 series 2 axial image. No ascites or free intraperitoneal gas is visualized. Bowel loops otherwise are unremarkable. Normal-appearing appendix is seen in the right lower quadrant. There is mild to moderate diverticulosis in the descending colon and sigmoid colon. There is minimal increased density in the adjacent mesentery. This may be chronic. I cannot exclude mild inflammation, minimal diverticulitis. There is no abscess or free air identified. Kidneys, Ureters and Urinary bladder: Garcia catheter is seen in the urinary bladder which is otherwise empty and difficult to characterize. Ureters and kidneys are unremarkable. Retroperitoneum: Atherosclerotic changes are seen in the abdominal aorta. No aneurysm is visualized. Nonspecific subcentimeter lymph nodes are seen in the retroperitoneum. No pathologically enlarged lymph nodes are identified. Reproductive organs: Uterus is deviated to the left of midline otherwise is unremarkable. No abnormal adnexal masses are seen Other: No acute bony abnormalities are seen IMPRESSION: Findings consistent with small-bowel obstruction mid pelvis to the left anteriorly secondary to an anterior pelvic wall hernia. No ascites or free air is seen. Alveolar densities throughout the right lower lobe suspicious for pneumonia. Atelectasis could present this manner. Small amount of atelectasis also suspected in the right middle lobe.. Mild to moderate diverticulosis left side of the colon as described. There is minimal increased density in the adjacent mesentery which may be chronic. I cannot exclude minimal diverticulitis. There is no evidence of abscess or free intraperitoneal gas that would suggest perforation. There is evidence of diffuse pancreatic atrophy. Benign-appearing calcifications visualize right adrenal gland suggesting prior fungal infection or hemorrhage. Adrenal glands are otherwise unremarkable. Garcia catheter visualized in the urinary bladder.
[2017-06-21] MEDS ORDERED: NACL 0.9% 1000 ML 1,000 ML ONE (18:22)
[2017-06-21] MEDS ORDERED: AMIDATE IV ONE ×2 (18:38→18:40)
[2017-06-21] MEDS ORDERED: ZEMURON IV ONE ×2 (18:38→18:40)
[2017-06-21] MEDS ORDERED: ARTIFICIAL TEARS OPHTH OINT OU PRN (18:46)
[2017-06-21] MEDS ORDERED: VASELINE LIP THERAPY TP PRN (18:46)
[2017-06-21] MEDS ORDERED: FLAGYL 500 MG/100 ML 500 MG/100 ML BAG IV SCH (19:00)
[2017-06-21] MEDS ORDERED: NACL 0.9% 500 ML IV SCH (19:00)
[2017-06-21 19:13] LABS: INR 0.92 (0.87-1.13)
[2017-06-21 19:14] LABS: Partial Thromboplastin Time 29.2 Sec. (24.2-36.6)
[2017-06-21] MEDS ORDERED: KEPPRA 1,000 MG/NS 0.75% 100ML 1,000 MG/100 ML BAG IV ONE (20:00)
[2017-06-21 20:34] LABS: Calcium 7.3 mg/dL (8.4-10.2)
--- NOTE | 2017-06-21 21:02 | XRay Report ---
FINAL REPORT EXAM: XR CHEST 1V AP HISTORY: ETT placement TECHNIQUE: AP portable view of the chest. PRIORS: 06/21/2017 at 8:08 p.m. FINDINGS: There is an endotracheal tube in place with the tip in the mid to distal trachea. There is an NG tube in place which courses below the diaphragm and below the lower margin of the film. The cardiomediastinal silhouette appears normal. There is mild right basilar subsegmental atelectasis. Otherwise, the lungs are clear. The bones and soft tissues are unremarkable. IMPRESSION: Status post intubation. The endotracheal and NG tubes appear adequately positioned. Mild right basilar subsegmental atelectasis
[2017-06-21 21:04] VITALS: BP 104/51
--- NOTE | 2017-06-21 21:08 | XRay Report ---
FINAL REPORT EXAM: XR CHEST 1V AP HISTORY: central line placement TECHNIQUE: Portable semi erect chest x-ray Comparison: 06/21, 06/21 earlier same day FINDINGS: Patient remains intubated. Endotracheal tube tip projects well above the david. Nasogastric tube is present with side port in the gastric body. There has been interval placement of a left internal jugular central line with tip in the region of the cavoatrial junction. No pneumothorax identified. There is patchy bibasal infiltrates, right greater than left. The underlying lungs appear to be emphysematous with mild bronchial thickening. IMPRESSION: Interval placement left internal jugular central line with tip in the region of the cavoatrial junction. No pneumothorax. Patchy right greater than left basal infiltrates. Underlying emphysema. Patient remains intubated. Endotracheal tube tip projects well above the david. Nasogastric tube is appropriately position.
--- NOTE | 2017-06-21 21:10 | XRay Report ---
FINAL REPORT EXAM: XR ABDOMEN 1V AP HISTORY: confirm OG placement TECHNIQUE: Low center chest/upper abdomen were performed Comparison: Earlier same day FINDINGS: Orogastric or nasogastric tube is present with tip in the region of the mid gastric body and side port well past the GE junction, appropriately position. There are patchy bibasal infiltrates superimposed on emphysema. Heart size is normal. IMPRESSION: Appropriately positioned orogastric tube.
== END 2017-06-21 21:17 | disposition admitted as inpatient to this hospital (09) ==
LOC: ED 12:13
DX: S06.5X9A Traumatic subdural hemorrhage with loss of consciousness of unspecified duration, initial encounter (principal); N39.0 Urinary tract infection, site not specified; N17.9 Acute kidney failure, unspecified; R41.82 Altered mental status, unspecified; K56.609 Unspecified intestinal obstruction, unspecified as to partial versus complete obstruction; F03.90 Unspecified dementia, unspecified severity, without behavioral disturbance, psychotic disturbance, mood disturbance, and anxiety; A41.9 Sepsis, unspecified organism; E87.5 Hyperkalemia
CPT/HCPCS: 31500; 36415; 36556; 51702; 70450; 71045; 74018; 74176; 80048; 80053; 80307; 81001; 82140; 82803; 82805; 82962; 83690; 83735; 84132; 84443; 85025; 85610; 85730; 86850; 86900; 86901; 87040; 87086; 93005; 93010; 94644; 96361; 96365; 96367; 96375; 99291; G0480; J0610; J1200; J1953; J2060; J2270; J2405; J2543; J7030; 80320; 94002; J1815